=== PATIENT | male | born 1930 | race Caucasian/White ===

== ENCOUNTER 2020-01-04 01:09 | Emergency (ER) | payer MEDICARE, BC ==
[~2020-01-04] VITALS: Ht 182.9 cm; Wt 87.5 kg
--- NOTE | 2020-01-04 01:30 | NUR ---
[facility] FROM [facility] S/P [facility] +HEAD TRAUMA, BILATERAL ARM SKIN TEARS. PT APPERS COMFUSED, HX OF DEMENTIA TO ER BED 3, VSS
[2020-01-04 01:49] LABS: BASOPHILS # (AUTO) 0.1 /CMM (0.0-0.2); BASOPHILS % (AUTO) 1.1 % (0.0-2.0); EOSINOPHILS % (AUTO) 2.8 % (0.0-6.0); HEMATOCRIT 28 % (39-51); HEMOGLOBIN 9.3 g/dL (13.5-17.5); LYMPHOCYTES % (AUTO) 14.3 % (20.0-44.0); MEAN CORPUSCULAR HGB CONC 33 g/dl (31.0-36.0); MEAN CORPUSCULAR VOLUME 97 fL (80-96); MONOCYTES # (AUTO) 0.7 /CMM (0.1-1.30); NEUTROPHILS # (AUTO) 4.9 /CMM (1.8-8.9); NEUTROPHILS % (AUTO) 71.8 % (43.0-81.0); PLATELET COUNT (AUTO) 235 /CMM (150-450); RED BLOOD CELL COUNT(AUTO) 2.91 MIL/uL (4.5-6.0); WHITE BLOOD COUNT (AUTO) 6.8 K/uL (4.3-11.0)
[2020-01-04 01:59] LABS: CALCIUM, SERUM 9.4 mg/dL (8.5-10.1); CARBON DIOXIDE 35 mmol/L (21-32); CHLORIDE 96 mmol/L (98-107); CREATININE 4.7 mg/dL (0.6-1.3); GLUCOSE 140 mg/dL (74-106); POTASSIUM 4.3 mmol/L (3.5-5.1); SODIUM SERUM 138 mmol/L (136-145); UREA NITROGEN, BLOOD 38 mg/dL (7-18)
--- NOTE | 2020-01-04 02:11 | NUR ---
PT TAKEN TO CT
[2020-01-04 02:13] LABS: ALANINE AMINOTRANSFERASE 17 U/L (12-78); ALBUMIN 3.4 g/dL (3.4-5.0); ALKALINE PHOSPHATASE 92 U/L (46-116); ASPARTATE AMINOTRANSFERASE 17 U/L (15-37); BILIRUBIN,DIRECT 0.1 mg/dL (0.0-0.2); BILIRUBIN,TOTAL 0.5 mg/dL (0.2-1.0); TOTAL PROTEIN, SERUM 9.4 g/dL (6.4-8.2)
--- NOTE | 2020-01-04 02:23 | NUR ---
PT BACK FROM CT
[2020-01-04] MEDS ORDERED: IPRA0.2S49 NEB (02:24)
[2020-01-04] MEDS ORDERED: DULO60CA45 PO (02:24)
[2020-01-04] MEDS ORDERED: CLOT12CR TP (02:24)
[2020-01-04] MEDS ORDERED: LEVO88TA5 PO (02:24)
[2020-01-04] MEDS ORDERED: BUDE0.5A4 IH (02:24)
[2020-01-04] MEDS ORDERED: FURO40TA5 PO (02:24)
[2020-01-04] MEDS ORDERED: AZIT250T13 PO (02:24)
[2020-01-04] MEDS ORDERED: SEVE800T8 PO (02:24)
[2020-01-04] MEDS ORDERED: QUET25TA PO (02:24)
[2020-01-04] MEDS ORDERED: OMEP20CA15 PO (02:24)
[2020-01-04] MEDS ORDERED: MIDO5TAB4 PO (02:24)
[2020-01-04] MEDS ORDERED: FINA5TAB11 PO (02:24)
[2020-01-04] MEDS ORDERED: CEFU250T85 PO (02:24)
--- NOTE | 2020-01-04 03:33 | NUR ---
CALLED [facility] FOR REPORT
--- NOTE | 2020-01-04 04:10 | NUR ---
CALLED [facility] FOR REPORT
--- NOTE | 2020-01-04 04:17 | NUR ---
SPOKE WITH SUSHMA FROM [facility] TO FOLLOW UP ON CT CERVICAL SPINE.
--- NOTE | 2020-01-04 04:46 | NUR ---
Patient does not wish to proceed with medical care recommended by Dr. Yun. Patient given information related to possible complications, up to and including , which could occur as a result of leaving the hospital at this time. Patient verbalizes understanding of risks involved due to leaving against medical advice. Patient has signed AMA form.
[2020-01-04 04:49] VITALS: BP 118/56
== END 2020-01-04 04:50 | disposition left against medical advice (07) ==
LOC: ER 01:09
DX: S51.812A Laceration without foreign body of left forearm, initial encounter (principal); S00.81XA Abrasion of other part of head, initial encounter; R55 Syncope and collapse; I50.9 Heart failure, unspecified; N18.9 Chronic kidney disease, unspecified; G30.9 Alzheimer's disease, unspecified; F02.80 Dementia in other diseases classified elsewhere, unspecified severity, without behavioral disturbance, psychotic disturbance, mood disturbance, and anxiety; J44.9 Chronic obstructive pulmonary disease, unspecified; E03.9 Hypothyroidism, unspecified; Z79.899 Other long term (current) drug therapy; W18.39XA Other fall on same level, initial encounter; Y93.89 Activity, other specified; Y92.89 Other specified places as the place of occurrence of the external cause; Y99.8 Other external cause status
CPT/HCPCS: 36415; 70450; 71045; 72125; 80048; 80076; 83880; 84484; 85025; 85730; 93005; 99285; A6403

== ENCOUNTER 2020-01-05 04:00 | Emergency (ER) | payer MEDICARE, BC ==
[~2020-01-05] VITALS: Ht 182.9 cm; Wt 87.5 kg
[~2020-01-05 04:00] MED LIST: AZIT250T13 PO; BUDE0.5A4 IH; CEFU250T85 PO; CLOT12CR TP; DULO60CA45 PO; FINA5TAB11 PO; FURO40TA5 PO; IPRA0.2S49 NEB; LEVO88TA5 PO; MIDO5TAB4 PO; OMEP20CA15 PO; QUET25TA PO; SEVE800T8 PO
--- NOTE | 2020-01-05 04:15 | NUR ---
PT BIB[facility] FROM [facility] S/P GL[facility]. -KO. SKIN TEARS ON RIGHT AND LEFT ELBOWS NOTED. FOOD AND BEVERAGE LEAD BEDSIDE FOR DRESSING CHANGE. MINIMAL BLEEDING ON THE R ELBOW. SKIN TEAR ON THE HEAD NOTED WELL. PT ALERT AND AWAKE, RR EVEN AND UNLABORED ON RA W/ NADN. CONNECTED TO THE MONITOR AND POX
--- NOTE | 2020-01-05 04:39 | NUR ---
PT REFUSED HEAD CT. SIGNED AMA FORM. MADE AWARE
--- NOTE | 2020-01-05 05:41 | NUR ---
Patient does not wish to proceed with medical care recommended by Dr. Donaldson. Patient given information related to possible complications, up to and including , which could occur as a result of leaving the hospital at this time. Patient verbalizes understanding of risks involved due to leaving against medical advice. Patient has signed AMA form.
[2020-01-05 05:42] VITALS: BP 121/87
== END 2020-01-05 05:42 | disposition left against medical advice (07) ==
LOC: ER 04:01
DX: S51.012A Laceration without foreign body of left elbow, initial encounter (principal); S00.81XA Abrasion of other part of head, initial encounter; J44.9 Chronic obstructive pulmonary disease, unspecified; E03.9 Hypothyroidism, unspecified; Z79.899 Other long term (current) drug therapy; W06.XXXA Fall from bed, initial encounter; Y93.89 Activity, other specified; Y92.89 Other specified places as the place of occurrence of the external cause; Y99.8 Other external cause status
CPT/HCPCS: 73080 ×2; 99283; A6403